=== PATIENT | male | born 1965 | race Caucasian/White ===

== ENCOUNTER 2019-01-23 06:33 | Inpatient (IN) ==
--- NOTE | 2018-12-04 13:07 | Anesthesiology Consultation ---
Date of Service December 04, 2018 Assessment & Plan (1) Encounter for pre-operative examination: - Awaiting review preop testing (labs, EKG, CXR). - Awaiting most recent cardiology office visit note/cardiac testing ([facility] cardiology). Chart Review Chart Review: Pending: Refer to Additional Notes / Consult section and Patient seen in Pre Admission Testing awaiting outside documentation/test results from heart specialist. Teaching & Discussion Pre-Anesthesia Teaching/Discussion Notes: Instructed NPO after midnight before surgery,except medications with 15 cc of water. Medication instructions provided according to the PAT guidelines. History Surgery Operation Date: 01/23/19 08:50 Proposed Procedures p Left Total Knee Replacement - López Ch MD Height/Weight Height: 6 ft 2 in Weight: 144 kg Allergies Allergy/AdvReac Type Severity Reaction Status Date / Time No Known Allergies Allergy Verified 11/28/18 12:55 Medications Home Medications Medication Instructions Recorded Confirmed Last Taken No Known Home Medications 11/28/18 11/28/18 Unknown Past Medical History Medical History History of atrial fibrillation episode a. fib in setting of illness 3 years ago/no known recurrence s/p cardioverson/medications discontinued by cardiology per patient Morbid obesity Osteoarthritis Exercise / Class Metabolic Activity II 4-5 Yardwork/Stairs/Walk up hill (one flight of stairs (no chest pain/no sob)) Past Family History Family History Mother Family history of diabetes mellitus Past Surgical History Surgical History History of arthroscopic surgery of elbow Lt History of tonsillectomy History of transesophageal echocardiography ([facility]) History of umbilical hernia repair History of wisdom tooth extraction Status post correction of deviated nasal septum Past Anesthesia History No Hx of Anesthesia Complications and No Family Hx of Anesthesia Complications History of PONV No Hx of PONV and Hx of Motion Sickness (rare) Social History Smoking Status: Never smoker Do You Dip or Chew Tobacco: No Hx Alcohol Use: Yes Alcohol type: beer, wine and hard liquor alcohol intake frequency: a few times a week Hx Substance Use: No substance use type: does not use Review of Systems Patient denies chest pain, shortness of breath, dyspnea on exertion, reflux, cough, wheezing, palpitations. Physical Exam Vital Signs VITALS BP 150/82 (Patient advised to followup with PCP regarding elevated BP) P 76 TEMP 98.5 SP02 96%RA RESP 16 PHYSICAL Full neck and c-spine range of motion. Full TMJ range of motion. TMD 3.5 finger breaths Mallampati Score 3 Dentition: intact, upper front cap Lungs: clear throughout to auscultation Cardiac: regular rate and rhythm, no murmurs noted Spine: normal Carotid arteries: negative bruit Extremities: no edema Testing Laboratory Results 12/04/18 13:30 12/04/18 13:30 PT 10.3 Seconds (9.0-12.0) 12/04/18 13:30 INR 1.0 (0.9-1.1) 12/04/18 13:30 APTT 24.8 Seconds (21.0-31.0) 12/04/18 13:30 Blood Type O Positive 12/04/18 13:30 Antibody Screen NEGATIVE 12/04/18 13:30 Electrocardiogram Date: 12/04/18 Findings: + NSR @ 1st deg AVB Chest X-Ray Date: 12/04/18 Findings: + NAD
--- NOTE | 2018-12-04 14:11 | XRay Report ---
XR chest Pre-admission PA/Lat HISTORY: 53 years-old Male pat preoperative exam. No acute chest complaints COMPARISON: None available TECHNIQUE: PA and lateral views of the chest FINDINGS: Cardiac silhouette is mildly enlarged. Mild right hemidiaphragmatic elevation. No pneumothorax, pleur al effusion, focal airspace consolidation or overt pulmonary edema. Healed remote left-sided rib frac tures. Bones of the chest appear grossly intact. IMPRESSION: No acute process. The above report was generated using voice recognition software. It may contain grammatical, syntax o r spelling errors. Electronically signed by: Jimbo Workman M.D. 12/04/2018 2:10 PM
[2018-12-04 14:50] LABS: Basophils # (auto) 0.07 K/uL (0-0.2); Basophils % (auto) 0.7 %; Eosinophils # (auto) 0.26 K/uL (0-0.5); Eosinophils % (auto) 2.8 %; Hemoglobin 14.4 g/dL (14.0-18.0); Immature Granulocytes # (auto) 0.05 K/uL (0.00-0.02); Immature Granulocytes % (auto) 0.5 %; Lymphocytes # (auto) 1.84 K/uL (1.2-3.4); Lymphocytes % (auto) 19.5 %; Mean Corpuscular Hemoglobin 31.2 pg (25-34); Mean Corpuscular Hgb Conc 35.1 g/dL (32-36); Mean Corpuscular Volume 88.9 fL (80-100); Mean Platelet Volume 11.2 fL (7.4-10.4); Monocytes # (auto) 0.67 K/uL (0.11-0.59); Monocytes % (auto) 7.1 %; Neutrophils # (auto) 6.55 K/uL (1.4-6.5); Neutrophils % (auto) 69.4 %; Platelet Count 204 K/uL (130-400); RDW Coefficient of Variation 13.1 % (11.5-14.5); RDW Standard Deviation 42.8 fL (36.4-46.3); Red Blood Count 4.61 M/uL (4.7-6.1); White Blood Count 9.44 K/uL (4.8-10.8)
[2018-12-04 14:57] LABS: BUN Creatinine Ratio 10.7 (10-20); Creatinine Clr Calc Pharmacy 117.7 ml/min; Est GFR (Non-African American) 75.9
[2018-12-04 15:01] LABS: Partial Thromboplastin Ratio 0.9; Partial Thromboplastin Time 24.8 Seconds (21.0-31.0); Prothrombin Time 10.3 Seconds (9.0-12.0)
--- NOTE | 2019-01-20 12:50 | History and Physical Report ---
DATE OF ADMISSION: 01/23/2019 CHIEF COMPLAINT: Persistent left knee pain, discomfort and swelling. HISTORY OF PRESENT ILLNESS: A 53-year-old rodas who presents for surgical treatment of his left knee. He has got a long history of left knee problems including pain, discomfort and swelling. 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 Over the past several years, he has developed increased pain and discomfort in his left knee. He did have his knee scoped by Dr. Demarco at [facility] 20 years ago which did provide some relief for a while. Over the past several years, he developed increased pain and discomfort globally in his knee. He has had a lot of swelling and required recurrent aspirations to manage his symptoms. He has become less successful over time. He now would like to proceed with total knee arthroplasty. 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 He would like to do this over the winter months when he has some time that he can take off. PAST MEDICAL HISTORY: Mild obesity with BMI of 41. PAST SURGICAL HISTORY: 1. Abdominal/umbilical hernia repair. 2. Left knee arthroscopy 20 years ago. ALLERGIES: None. CURRENT MEDICATIONS: Various anti-inflammatory medicines. SOCIAL HISTORY: A 53-year-old male. He is . Works as a rodas. Does not smoke. FAMILY HISTORY: Noncontributory. REVIEW OF HISTORY: Negative for diabetes, neurologic problem, vascular problems or bleeding disorders. Denies any chest pain or shortness of breath. No signs of DVT or PE. No bleeding problems. PHYSICAL EXAMINATION: GENERAL: Shows a pleasant, middle-aged male, looks to be in good health. HEENT: Benign. NECK: Supple, no lymphadenopathy. LUNGS: Clear to auscultation. HEART: Regular rate and rhythm. ABDOMEN: Soft, nontender, nondistended. EXTREMITIES: Grossly neurovascularly intact except as follows: Examination of the left knee reveals patient walks with a slight bit of a limp. He has got varus alignment to his knee. Moderate soft tissue envelope. He has got moderate sized knee joint effusion. His range of motion is about 10 degrees short of full extension to 125 degrees of flexion. There is no gross instability. No pain with hip motion. X-RAYS: X-rays of the left knee reviewed. Shows advanced left knee medial compartment DJD. He has got complete loss of his medial joint space. He has got osteophytes of the medial femoral condyle and medial tibial plateau. He has got some mild patellofemoral disease as well. ASSESSMENT: A 53-year-old male rodas with a history of left knee arthroscopy in the past with left knee degenerative joint disease. He has failed conservative treatment and it is affecting his quality of life and he would like to have his left knee fixed. PLAN: We will take him to the operating room and do a left total knee replacement. The risks and benefits of this procedure were explained to the patient including but not limited to DVT, PE, , infection, neurological injury, vascular injury, bleeding problem, pain, limited range of motion, stiffness, failure to relieve symptoms, incomplete relief of symptoms, need for further surgery in future, fracture, leg length inequality, nerve palsy, persistent pain, etc. The patient understands and desires to proceed. Informed consent was obtained. I did talk to him about his young age, this might need to be redone in the future and he is fully aware of that.
[~2019-01-23 06:33] MED LIST: ACETAMINOPHEN 500 MG TAB PO SCH; BUPIVACAINE 0.25% 30 ML VIAL ONE; BUPIVACAINE 0.5 % 5 MG/1 ML PF 10ML VIAL ONE; BUPIVACAINE LIPOSOME/PF 266 MG, BUPIVACAINE/EPINEPHRINE 50 ML, SODIUM CHLORIDE 0.9% 30 ... INFIL SCH; CEFAZOLIN 3000MG 72.5 ML IV SCH; FAMOTIDINE 20 MG TAB PO SCH; GABAPENTIN 900 MG DOSE PO SCH; LR 500ML BOLUS, THEN 15ML/HR IV SCH; LR 60ML/HR IV SCH; METOCLOPRAMIDE HCL 10 MG TABLET PO SCH; SCOPOLAMINE 1.5 MG TDSY TD SCH; TRANEXAMIC ACID 1,000 MG **IV Intra-op IV SCH
--- NOTE | 2019-01-23 06:56 | History & Physical Bridge Note ---
Date of Service January 23, 2019 History & Physical Bridge Note I have examined the patient, reviewed the History & Physical and in the interval since the performance of the History & Physical I have noted the following changes of clinical significance: no changes noted
[2019-01-23] MEDS ORDERED: MIDAZOLAM HCL 1 MG/ML 2ML VIAL ONE ×3 (07:26→09:54)
[2019-01-23] MEDS ORDERED: fentaNYL citrate 100 MCG/2 ML VIAL ONE (07:26)
[2019-01-23] MEDS ORDERED: ATROPINE SULFATE 0.1 MG/ML 10ML SYR IV PRN (07:50)
[2019-01-23] MEDS ORDERED: ePHEDrine sulfate 50 MG/ML AMP IV PRN (07:50)
[2019-01-23] MEDS ORDERED: BACITRACIN INJ 50,000 UNIT VIAL ONE (08:30)
[2019-01-23] MEDS ORDERED: BUPIVACAINE/EPINEPHRINE 0.25% 1:200,000 30 ML VIAL ONE (08:30)
[2019-01-23] MEDS ORDERED: SODIUM CHLORIDE 0.9% PF 50 ML VIAL ONE (08:30)
[2019-01-23] MEDS ORDERED: BUPIVACAINE LIPOSOME 1.3% 266 MG/20 ML VIAL ONE (08:30)
[2019-01-23] MEDS ORDERED: KETAMINE HCL INJ 50 MG/ML 10 ML VIAL ONE (09:24)
[2019-01-23] MEDS ORDERED: PROPOFOL IV EMULSION 10 MG/ML 20 ML VIAL IV ONE (10:05)
--- NOTE | 2019-01-23 10:49 | Post Operative Brief Note ---
PG Immediate Post Op with CF Date of Surgery January 23, 2019 Pre & Post Diagnosis Operation Date: 01/23/19 08:50 Pre-Op Diagnosis: Left knee Degenerative Joint Disease Post-Op Diagnosis: Left knee Degenerative Joint Disease I identified the patient and participated in the time-out.: Yes Procedure Operation Date: 01/23/19 08:50 Actual Procedures p Left Total Knee Arthroplasty, Cemented(Left) - López Ch MD Surgeon López Ch MD Linoleum Layer Apprentice Vince, PAC Estimated Blood Loss 50 Findings Consistent with Post-Op Diagnosis Fluids 1000 cc Specimens Specimen Description: Permanent Specimen A: Left knee bone and tissue Drains Mccormack Catheter Anesthesia Type Spinal MAC Complications none Disposition Accompanied Patient To Recovery: No Disposition: Recovery Room
--- NOTE | 2019-01-23 10:59 | Operative Report ---
Post Operative Report Pre & Post Diagnosis Operation Date: 01/23/19 08:50 Pre-Op Diagnosis: Left knee Degenerative Joint Disease Post-Op Diagnosis: Left knee Degenerative Joint Disease I identified the patient and participated in the time-out.: Yes Procedure Operation Date: 01/23/19 08:50 Actual Procedures p Left Total Knee Arthroplasty, Cemented(Left) - López Ch MD Surgeon López Ch MD Security Flex Utility Officer Vince, PAC Estimated Blood Loss 50 Findings Consistent with Post-Op Diagnosis Operative findings revealed advanced left knee DJD with extensive grade 4 [id number] disease of the medial and patellofemoral compartments. He had a varus deformity to his knee and a small flexion contracture. A large knee joint effusion. Some moderate synovitis. Fluids 1000 cc Specimens Left knee sent for pathology. Drains None. Anesthesia Type Spinal MAC Complications none Disposition Accompanied Patient To Recovery: No Disposition: Recovery Room Indications Patient is a 53-year-old very active rodas was had a long history of left knee pain discomfort. Is been through extensive conservative treatment in the past. He said his knee scope many years ago which required several years relief. Over the past 5 to 10 years he developed increased pain discomfort deformity and stiffness in his knee. He failed all extensive treatment. He elected proceed with total knee arthroplasty. Description of Procedure Operative implants consisted of: 1. Biomet Vanguard size 80 left posterior by femoral component. 2. Biomet size 83 tibial tray. 3. 10 mm posterior bite polyethylene insert. 4. 37 x 10 all poly-patella. Patient was taken to the operating room identified and placed on the operating table supine position with all contact areas were properly padded. IV antibiotics were provided by anesthesia team. A spinal anesthetic and abductor canal block had provided holding area. Mccormack catheter was placed in sterile fashion. Left atrium was then placed in the left lower extremities and prepped draped in usual sterile fashion. The left leg was elevated and exsanguinated use of an Esmarch and turns placed at 300 mmHg. An anterior posterior left knee was then performed to longitudinal incision centered over the patella. Sharp lysis got through subcutaneous tissue down below the extensor mechanism. A medial parapatellar arthrotomy incision was made. Some subperiosteal dissection was carried out medially. The fat pad was resected from each patella tendon. Lateral patellofemoral ligament was released. Patella was subluxated laterally and the knee was flexed. The osteophytes were taken off the distal femur. The ACL and PCL were then released from the distal femur and the tibia subluxated anteriorly. The external tibial alignment jig was then placed in the interface the tibia and adjusted 16 mm medially. Proximal tibial cut was made to remove about 1 to 2 mm of bone from most efficient aspect of the medial tibial plateau. Some osteophytes were taken off medial and posterior medially. Tibia sized to a size 83. Attention drawn the femur. The distal femur stem with a sharp drop with intramedullary canal was suction. A left 6 degree valgus cutting guide was placed in the distal femoral cutting block was pinned in place. Distal femoral cut was made to take an additional 3 mm of bone off distal femur. Femur was then sized to a size 80. We did downsize this just slightly. The AP cutting block was pinned parallel to the epicondylar axis which was 5 degrees of external rotation. The anterior cut, anterior chamfer, posterior cut, posterior chamfer cuts were made. Box cutting guide was placed in just slight lateral and the box cut was made. The knee was flexed. The remnants of the medial lateral menisci were excised. The osteophytes were taken off the posterior aspect of the femur. A trial femoral component was placed. The tibial tray was pinned in maximum external rotation and the drill and stem punch were used to create defect in the proximal tip for the tibial tray. The knee was then trialed the 10 mm insert fit most appropriately. Attention drawn the patella. The patella was cleaned of all soft tissues. Patella thickness measured 26 mm in thickness was cut down to 15. Was sized to a size 37 patella. Locals were drilled for 37 patella. The lateral osteophyte is moved. Patella button was placed. Knee was taken through range of motion patella tracked nicely with no thumbs test. Attention turned to placing the permanent components. All trial components were removed. Bone plug was placed in the disc femur limit blood loss put a double batch Palacos G cement was mixed. A Biomet Vanguard size 80 left posterior by femoral component, size 83 tibial tray, 10 mm posterior box polyethylene insert, and a 37 x 10 all poly-patella then cement in place. Knees brought into full extension total cement hardened. Final cement check was then performed. The pericapsular tissues were injected with total of 100 cc of combination of 20 cc of Exparel, 30 cc normal saline, 50 cc of quarter percent Marcaine with epinephrine. Patient did receive 1 g of tranexamic acid. The tourniquet was then let down for final tourniquet time 66 minutes. Hemostasis assured with electrocautery. Wounds once again irrigated. Extensor mechanism closed with combination 1 PDS suture #1 Vicryl suture in [id number] fashion. Extensor mechanism checked found to be intact with subcutaneous tissue then closed with 2 Dexon suture in a buried interrupted fashion skin was closed skin joan. Leg was then cleaned dried a sterile dressing composed of Xeroform, 4 x 4's, sterile cast padding, Oliver bandage were applied. Patient then transferred to the recovery room in stable condition. The patient tolerated the procedure well and there were no complications. I attest to the content of the Intraoperative Record and any orders documented therein. Any exceptions are noted below.
--- NOTE | 2019-01-23 11:25 | XRay Report ---
TWO VIEWS LEFT KNEE CLINICAL HISTORY: Postoperative examination. FINDINGS: AP and crosstable lateral portable views of the left knee are obtained. A left knee arthrop lasty is in near anatomic alignment. There has been undersurface remodeling of the patella. No acute fracture is seen. There are expected postoperative changes around the knee including skin clips, soft tissue edema, and subcutaneous gas. IMPRESSION: Expected postoperative changes status post left knee arthroplasty. No acute fracture is s een. Electronically signed by: Saleem Rai M.D. 01/23/2019 11:23 AM
--- NOTE | 2019-01-23 11:25 | Anesthesiology Progress Note ---
Date of Service January 23, 2019 Anesthesia Post Procedure Vital Signs Vital Signs: Temp Pulse Pulse Resp BP Pulse Ox 01/23/19 11:15 63 18 101/73 98 01/23/19 11:05 72 15 119/67 100 01/23/19 10:56 36.2 C L 68 16 115/70 98 01/23/19 07:08 36.8 C 66 16 149/87 H 96 Transfer of Care Handoff Completed per policy Notes Mental Status: alert / awake / arousable and participated in evaluation Patient Amnestic to Procedure: Yes Nausea / Vomiting: adequately controlled Pain: adequately controlled Airway Patency, RR, SpO2: stable & adequate BP & HR: stable & adequate Hydration State: stable & adequate Neuraxial Anesthesia: was administered and sensory block is resolving Anesthetic Complications: no major complications apparent and Pt Satisfied with anesthetic care
[2019-01-23] MEDS ORDERED: MAGNESIUM HYDROXIDE SUSP 30 ML UDC PO PRN (11:56)
[2019-01-23] MEDS ORDERED: HYDROmorphone INJ 0.5 MG/0.5 ML SYR IV PRN (11:56)
[2019-01-23] MEDS ORDERED: ONDANSETRON INJ 2 MG/ML 2 ML VIAL IV PRN (11:56)
[2019-01-23] MEDS ORDERED: TAMSULOSIN HCL 0.4 MG CAP PO PRN (11:56)
[2019-01-23] MEDS ORDERED: NALOXONE HCL 0.4 MG/1 ML VIAL/CARP IV PRN (11:56)
[2019-01-23] MEDS ORDERED: METOCLOPRAMIDE HCL INJ 5 MG/ML 2 ML VIAL IV PRN (11:56)
[2019-01-23] MEDS ORDERED: bisacodyL 10 MG SUPP PR PRN (11:56)
[2019-01-23] MEDS: SODIUM CHLORIDE 0.9% 1000ML 1,000 ML IV SCH ×2 (12:12→19:05)
[2019-01-23] MEDS: ACETAMINOPHEN 500 MG TAB PO SCH ×2 (13:51→21:27)
[2019-01-23] MEDS: KETOROLAC 30 MG/ML VIAL IV SCH ×2 (13:51→19:09)
[2019-01-23] MEDS: CHECK SCOPOLAMINE PATCH PLACEMENT SCH ×2 (15:08→23:59)
[2019-01-23] MEDS: OXYCODONE HCL IR 5 MG TAB (IMMEDIATE RELEASE) PO PRN ×2 (15:11→23:58)
[2019-01-23] MEDS: CEFAZOLIN 2000MG 2,000 MG/15 ML SYR IV SCH (16:42)
[2019-01-23] MEDS ORDERED: TRANEXAMIC ACID / 0.7% NACL 1,000 MG/100 ML BAG IV SCH (16:52)
[2019-01-23] MEDS: FERROUS GLUCONATE 324 MG TAB PO SCH (17:43)
[2019-01-23] MEDS: ASCORBIC ACID 500 MG TAB PO SCH (17:43)
[2019-01-23] MEDS: DOCUSATE SODIUM 100 MG CAP PO SCH (20:38)
[2019-01-23] MEDS: TAPENTADOL HCL ER 50 MG TABCR PO SCH (20:38)
[2019-01-23] MEDS: ASPIRIN 81 MG ECTAB PO SCH (20:38)
[2019-01-23] MEDS ORDERED: SENNA 8.6 MG TAB PO SCH (21:00)
--- NOTE | 2019-01-23 21:15 | Progress Note ---
DATE: 01/23/2019 SUBJECTIVE: A 53-year-old rodas postop from a left knee replacement. He is doing pretty well. Just starting to get some discomfort in his leg. No chest pain or shortness of breath. Not feeling dizzy or lightheaded. OBJECTIVE: VITAL SIGNS: Temperature is 36.7. Vital signs stable. GENERAL: Physical examination shows a pleasant, middle-aged male. He is lying in bed and looks quite comfortable. LUNGS: Clear to auscultation. HEART: Regular rate and rhythm. ABDOMEN: Soft, nontender, nondistended. EXTREMITIES: Grossly neurovascularly intact except as follows: Examination of the left lower extremity reveals the leg to be well aligned. Dressing is clean, dry, and intact. He can dorsiflex and plantarflex his foot appropriately. He can do a straight leg raise. X-RAYS: X-rays of the left knee from recovery room reviewed. It shows a left cemented posterior stabilized total knee arthroplasty. Components looked to be in good position. No signs of problems. ASSESSMENT: A 53-year-old gentleman postop from a left knee replacement, doing well. Pain is controlled. He is neurologically intact. PLAN: 1. DVT prophylaxis including thigh-high TEDs, SCDs, and aspirin twice a day. 2. PT/OT. Weight bear as tolerated. Left total knee protocol. 3. Pain control, doing pretty well with current pain regimen. 4. IV antibiotics x24 hours. 5. Disposition: Plan to discharge to home likely with some home health once adequately recovered and medically stable.
[2019-01-24] MEDS: KETOROLAC 30 MG/ML VIAL IV SCH ×2 (01:12→07:35)
[2019-01-24] MEDS: CEFAZOLIN 2000MG 2,000 MG/15 ML SYR IV SCH (01:12)
[2019-01-24] MEDS: SODIUM CHLORIDE 0.9% 1000ML 1,000 ML IV SCH (01:19)
[2019-01-24] MEDS: ACETAMINOPHEN 500 MG TAB PO SCH (06:17)
[2019-01-24 06:31] LABS: Hemoglobin 11.7 g/dL (14.0-18.0); Mean Corpuscular Hemoglobin 30.4 pg (25-34); Mean Corpuscular Hgb Conc 32.5 g/dL (32-36); Mean Corpuscular Volume 93.5 fL (80-100); Mean Platelet Volume 10.8 fL (7.4-10.4); Platelet Count 182 K/uL (130-400); RDW Coefficient of Variation 13.3 % (11.5-14.5); RDW Standard Deviation 45.6 fL (36.4-46.3); Red Blood Count 3.85 M/uL (4.7-6.1); White Blood Count 11.56 K/uL (4.8-10.8)
[2019-01-24 07:03] LABS: BUN Creatinine Ratio 14.2 (10-20); Calcium 8.3 mg/dl (8.5-10.1); Creatinine Clr Calc Pharmacy 132.5 ml/min; Est GFR (African American) 102.3; Est GFR (Non-African American) 88.3; Potassium 4.5 mmol/L (3.5-5.1)
[2019-01-24] MEDS: OXYCODONE HCL IR 5 MG TAB (IMMEDIATE RELEASE) PO PRN (07:34)
[2019-01-24 07:45] VITALS: BP 119/74; TEMP 98.6; O2SAT 96
[2019-01-24] MEDS: TAPENTADOL HCL ER 50 MG TABCR PO SCH (08:40)
[2019-01-24] MEDS: DOCUSATE SODIUM 100 MG CAP PO SCH (08:40)
[2019-01-24] MEDS: ASPIRIN 81 MG ECTAB PO SCH (08:40)
[2019-01-24] MEDS: ASCORBIC ACID 500 MG TAB PO SCH (08:40)
[2019-01-24] MEDS: FERROUS GLUCONATE 324 MG TAB PO SCH (08:40)
[2019-01-24] MEDS ORDERED: MULTIVITAMIN TAB PO SCH (09:00)
[2019-01-24 11:35] VITALS: PULSE 70
--- NOTE | 2019-01-24 13:37 | Progress Note ---
DATE: 01/24/2019 SUBJECTIVE: A 53-year-old gentleman postop day #1 from a left knee replacement. He is doing pretty well. His pain is controlled. Denies any chest pain or shortness of breath. Not feeling dizzy or lightheaded. Anxious to get home. OBJECTIVE: VITAL SIGNS: Temperature 37.0. Vital signs stable. GENERAL: Shows a pleasant, middle-aged male. He is sitting up in his bedside chair, looks pretty comfortable. EXTREMITIES: Examination of the left leg reveals the dressing to be clean, dry, and intact. He can dorsiflex and plantarflex his foot appropriately. He can do a straight leg raise. He is neurologically intact. LABORATORY DATA: Hemoglobin is 11.7. Hematocrit 36.0. White cell count 11.56. Electrolytes are stable. ASSESSMENT: A 53-year-old gentleman postop day #1 from left knee replacement, doing pretty well. Pain is controlled. He is neurologically intact. He is anxious to get home. PLAN: 1. DVT prophylaxis including thigh-high TEDs, SCDs, and aspirin twice a day. 2. PT/OT. Weight bear as tolerated. Left total knee protocol. 3. Pain control, doing pretty well with current pain regimen. 4. Disposition. We are going to plan to discharge him to home. He is going to start outpatient therapy. He has been instructed on dressing changes.
--- NOTE | 2019-01-30 09:26 | Discharge Summary ---
DATE OF ADMISSION: 01/23/2019 DATE OF DISCHARGE: 01/24/2019 ADMITTING PHYSICIAN AND SURGEON: Dr. López Ch. ADMITTING DIAGNOSIS: Left knee degenerative joint disease. SECONDARY DIAGNOSIS: Mild obesity. SURGERY PERFORMED: Left total knee arthroplasty. CONSULTS: None obtained. HISTORY AND PHYSICAL EXAMINATION: Well documented in the patient's chart. HOSPITAL COURSE: The patient was admitted on 01/23/2019, underwent total knee arthroplasty, tolerated the procedure well. There were no complications. He was transferred to the PACU postoperatively and later to the orthopedic for further care. He was given Ancef for antibiotic prophylaxis, ADI stockings, SCDs and aspirin for DVT prophylaxis. Hemoglobin, hematocrit and vital signs were monitored during his hospital stay and remained stable, did not require any blood transfusions. There were no complications. On postoperative day 1, he was tolerating a regular diet, pain was controlled with oral pain medicine. He was participating in physical therapy. On postop day 1, he was discharged home. He was given printed discharge instructions as well as new prescriptions for extra strength Tylenol, aspirin and oxycodone. Continue physical therapy, weightbearing as tolerated, ADI stockings. Follow up approximately 2 weeks postop or sooner if there are any problems or concerns.
== END 2019-01-24 13:23 | disposition home or self-care (01) | DRG 470 ==
LOC: ASU 06:33 → 3E 10:53